=== PATIENT | female | born 2000 | race American Indian/Alaskan Native ===

== ENCOUNTER 2019-03-17 18:15 | Outpatient (CLI) | payer OTHER ==
--- NOTE | 2019-03-17 21:19 | Ultrasound Report ---
Limited OB Ultrasound HISTORY: for LAZARO. TECHNIQUE: Grayscale and color Doppler imaging performed. COMPARISON: None FINDINGS: There is a single intrauterine gestation which is cephalic in presentation with heart rate of 164 bpm. The LAZARO is 17 cm. Placenta is positioned posteriorly. IMPRESSION: Unremarkable exam. Signer Name: Saeid Lira MD Signed: 03/17/2019 9:14 PM Workstation Name: [id number]
[2019-03-17 23:13] VITALS: BP 119/69
--- NOTE | 2019-03-18 01:20 | Progress Note ---
Assessment and Plan A: at 20 weeks, 4 days gestation. No evidence of rupture of membranes; normal LAZARO. No contractions; not in labor at this time. P: Consulted with Dr. Monreal re: this patient due to gestation. Informed Dr. Monreal of patient complaints and history, exam, fern test results, LAZARO. Dr. Monreal orders to discharge patient home. Patient to follow up at regularly scheduled appointment with [facility] on 03/22/19. Warning signs discussed with patient. Advised patient to avoid intercourse. Subjective - Subjective Date of service: 03/18/19 Interval history: 18 year old at 20 4/7 weeks gestation presents complaining of leaking of some sort of fluid from vagina 2 times today. Pt. states both times she noticed this right afer she urinated. Patient denies vaginal bleeding. Patient reports active movement. Patient states she did not have to wear a pad or change clothes. She states that discharge/fluid did not continue to leak out. Patient reports no complications with this ; sees [facility] due to history of loss with her last . Management orders for this patient given by Dr. Monreal due to gestation. Patient reports: movement normal, no vaginal bleeding, no contractions Objective - Vital Signs Vital Signs: Vital Signs - 12hr 03/17/19 03/17/19 19:04 23:12 Temperature 98.2 F Pulse Rate 84 Respiratory 18 Rate Blood Pressure 119/69 - Exam Narrative Exam: LAZARO 17 cm. EFM: FHR AGA. No contractions noted on monitor or palpated. Fern negative times 2. Abdomen: Present: normal appearance, soft. Absent: distention, tenderness, guarding, rigidity Uterus: Present: normal, fundal height above umbilicus. Absent: tenderness FHR: category 1 FHR comments: Speculum exam performed times 2. Negative pooling, negative nitrazine, negative fern. Small to moderate amount of white discharge. No bleeding. Cervix is closed and thick. Uterus is nontender; no fundal tenderness. Uterine Contraction Monitor Mode: External Cervical Dilatation: 0 Cervical Effacement Percentage: 0 Uterine Contraction Pattern: Absent
== END 2019-03-18 02:15 | disposition home or self-care (01) ==
LOC: TRG 18:15 → LD 21:43 → TRG 03-18 02:15
PROVIDERS: ATTEND Obstetrics & Gynecology
DX: O47.02 False labor before 37 completed weeks of gestation, second trimester (principal); Z3A.20 20 weeks gestation of pregnancy
CPT/HCPCS: 76815

== ENCOUNTER 2019-03-21 11:55 | Outpatient (CLI) | payer OTHER ==
[2019-03-21] MEDS ORDERED: diphenhydrAMINE 50 MG/ML VIAL IV ONE ×2 (13:19→16:00)
[2019-03-21 13:56] LABS: Hematocrit 28.9 % (30.3-42.9); Hemoglobin 9.5 gm/dl (10.1-14.3); Mean Corpuscular HGB Conc 33 % (30-34); Mean Corpuscular Volume 84 fl (79-97); Platelet Count 242 K/mm3 (140-440); Red Blood Count 3.43 M/mm3 (3.65-5.03); Red Cell Distribution Width 17.6 % (13.2-15.2)
[2019-03-21 14:02] LABS: Bilirubin,Urine NEG (Negative); Blood,Urine NEG (Negative); Color,Urine Yellow (Yellow); Mucus,Urine FEW /HPF; Protein,Urine <15 mg/dL mg/dL (Negative)
[2019-03-21 14:17] LABS: Alanine Aminotransferase 21 units/L (7-56); Uric Acid 2.9 mg/dL (3.5-7.6)
[2019-03-21 15:01] VITALS: BP 119/76
== END 2019-03-21 15:28 | disposition home or self-care (01) ==
LOC: TRG 11:55
PROVIDERS: ATTEND Obstetrics & Gynecology
DX: O26.892 Other specified pregnancy related conditions, second trimester (principal); M79.89 Other specified soft tissue disorders; O47.02 False labor before 37 completed weeks of gestation, second trimester; Z3A.21 21 weeks gestation of pregnancy
CPT/HCPCS: 36415; 59025; 81001; 82565; 83615; 84450; 84460; 84550; 85027; 96365; J1200; 96374

== ENCOUNTER 2020-05-27 20:52 | Inpatient (IN) | payer OTHER ==
[2020-05-27] MEDS ORDERED: LIDOCAINE (2%) 20 MG/1 ML VIAL 20 ML MDV INFILTRATI ONE (23:07)
[2020-05-27] MEDS ORDERED: PROMETHAZINE 25 MG TAB PO PRN (23:07)
[2020-05-27] MEDS ORDERED: NalbUPHINE 10 MG/1 ML INJ IV PRN (23:07)
[2020-05-27] MEDS ORDERED: fentaNYL 100 MCG/2 ML INJ IV PRN (23:07)
[2020-05-27] MEDS ORDERED: AMPICILLIN/NS 2 GM/100 ML 2 GM/100 ML BAG IV ONE (23:07)
[2020-05-27] MEDS ORDERED: ePHEDrine SULFATE 50 MG/1 ML INJ IV PRN (23:07)
[2020-05-27] MEDS ORDERED: DINOPROSTONE 10 MG VAG SUPP VG ONE (23:07)
[2020-05-27] MEDS ORDERED: MINERAL OIL 30 ML ORAL LIQD PO PRN (23:07)
[2020-05-27 23:25] LABS: Hematocrit 33.1 % (30.3-42.9); Hemoglobin 11.2 gm/dl (10.1-14.3); Mean Corpuscular HGB Conc 34 % (30-34); Mean Corpuscular Volume 83 fl (79-97); Red Blood Count 3.97 M/mm3 (3.65-5.03); Red Cell Distribution Width 15.3 % (13.2-15.2)
--- NOTE | 2020-05-27 23:27 | History and Physical Report ---
History of Present Illness Date of examination: 05/27/20 Date of admission: 05/27/20 20:52 Chief complaint: demise told to patient 3 days ago in the [facility] office and pt here for induction of labor History of present illness: at 16.2wks by EDC 11/09/20 per pt report, with demise diagnosed 3days ago by [facility]. Pt has not had any pelvic pain, vaginal bleeding or leakage of fluid. Pt states that she was told that she had an incompetent cervix with leakage of fluid prior to delivery of 17wk demise in 08/2018 and then she declined cerclage with her next in 06/2019 with PPROM and breech hence c/section done and now this no evaluation of cervical incompetence was done and she saw a lot of fluid around the baby but no FHR on 05/24/20. Pt had epidural with her first 17wk delivery and will decide if she will need it for this delivery also. Past History Past Surgical History: section (PPROM breech at 35wks and child doing well) Social history: no significant social history - Obstetrical History : 3 Number of Pregnancies: 1 (c/s for PPROM, breech) Induced : 1 (SROM at 17wks, cervical insufficiency) Number of Living Children: 1 Medications and Allergies Allergies Allergy/AdvReac Type Severity Reaction Status Date / Time No Known Allergies Allergy Unverified 03/17/19 19:32 Home Medications Medication Instructions Recorded Confirmed Last Taken Type Ibuprofen [Motrin 800 MG tab] 800 mg PO Q6H PRN #30 tablet 07/05/19 Unknown Rx oxyCODONE /ACETAMINOPHEN [Percocet 1 tab PO Q6H PRN #30 tablet 07/05/19 Unknown Rx 5/325 mg] Active Meds: Active Medications Ephedrine Sulfate (Ephedrine Sulfate 50 Mg/1 Ml Inj) 10 mg IV Q2M PRN PRN Reason: Hypotension Fentanyl (Fentanyl 100 Mcg/2 Ml Inj) 100 mcg IV Q2H PRN PRN Reason: Pain,Severe (7-10) LABOR PAIN Lactated Ringer's (Lactated Ringers) 1,000 mls @ 125 mls/hr IV DIRECT ANKITA Oxytocin/Sodium Chloride (Pitocin/Ns 30 Unit/500ml) 30 units in 500 mls @ 40 mls/hr IV TITR ANKITA; Protocol Ampicillin Sodium (Ampicillin/Ns 2 Gm/100 Ml) 2 gm in 100 mls @ 100 mls/hr IV Q6HR ONE; Protocol Stop: 05/28/20 00:06 Mineral Oil (Mineral Oil 30 Ml Oral Liqd) 30 ml PO QHS PRN PRN Reason: Constipation Nalbuphine HCl (Nalbuphine 10 Mg/1 Ml Inj) 10 mg IV Q2H PRN PRN Reason: Pain, Moderate (4-6) Promethazine HCl (Promethazine 25 Mg Tab) 25 mg PO Q6H PRN PRN Reason: Nausea And Vomiting Review of Systems All systems: negative ( demise at 16.2wks confirmed by [facility]) - Vital Signs Vital signs: Vital Signs Pulse BP 90 119/85 05/27/20 21:33 05/27/20 21:33 Temp Pulse Resp BP Pulse Ox 99.5 F 88 16 122/68 99 05/27/20 21:46 05/27/20 23:15 05/27/20 21:46 05/27/20 22:34 05/27/20 23:15 - Physical Exam Breasts: Positive: deferred Cardiovascular: Regular rate Lungs: Positive: Normal air movement Abdomen: Positive: soft Vulva: both: normal Vagina: Positive: normal moisture Uterus: Positive: enlarged (18wk fundus) Anus/Rectum: Positive: normal perianal skin Extremities: Positive: normal - Obstetrical FHR: other (no FHR confirmed by u/s at [facility] with fluid around baby) Uterine Contraction Monitor Mode: External Cervical Dilatation: 0 Cervical Effacement Percentage: 0 station: -4 Uterine Contraction Pattern: Absent Results All other labs normal. Assessment and Plan IUP at 16.2wks with demise, previous c/section and fundus at 18wks for delivery 1. Admit to labor and delivery for delivery of baby and obtain confirmed demise here at the hospital and same done 2. Obtain records in the am from [facility] when available 3. Discussed risks, benefits and alternatives of induction of labor with cervidil with previous scarred uterus and undocumented scar 4. May have IV pain med or epidural when desired 5. Pt desires depo contraception prior to discharge 6. Will add urine drug screen to walk in labs 7. [facility] desires genetic post delivery and tissue sample to be test All questions encouraged and answered
[2020-05-27 23:34] LABS: Platelet Count 164 K/mm3 (140-440)
[2020-05-27] MEDS ORDERED: OXYTOCIN DRIP 30 UNITS/500 ML BAG IV SCH (23:45)
[2020-05-28] MEDS: LACTATED RINGERS 1,000 ML IV SCH ×3 (00:41→18:52)
--- NOTE | 2020-05-28 01:12 | Ultrasound Report ---
ULTRASOUND OBSTETRIC LIMITED INDICATION / CLINICAL INFORMATION: cardiac activity. Clinical Gestational Age (GA): 16.2 weeks.days COMPARISON: None available. FINDINGS: HEART RATE (beats per minute): No cardiac activity detected on M-mode AMNIOTIC FLUID INDEX (cm) = not measured PRESENTATION: Cephalic. ADDITIONAL FINDINGS: None. IMPRESSION: 1. demise with no cardiac activity detected Signer Name: Jasper William MD Signed: 05/28/2020 1:07 AM Workstation Name: [id number]
[2020-05-28] MEDS ORDERED: AMPICILLIN/NS 2 GM/100 ML 2 GM/100 ML BAG IV SCH (08:00)
--- NOTE | 2020-05-28 10:14 | Progress Note ---
Subjective - Subjective Date of service: 05/28/20 Principal diagnosis: IUFD Interval history: IUFD SP cervidilx1 dose to be removed at noon will check cervix and change to ACOG protocol 200mcg Q4x5 doses discontinue prophylactic antibiotics Maternal well being reassuring at bedside Ana Rosa Bean MD Objective - Vital Signs Vital Signs: Vital Signs - 12hr 05/27/20 05/27/20 05/27/20 22:13 22:15 22:20 Temperature Pulse Rate 96 H 82 83 Respiratory Rate Blood Pressure O2 Sat by Pulse 91 99 99 Oximetry 05/27/20 05/27/20 05/27/20 22:25 22:30 22:34 Temperature Pulse Rate 96 H 88 86 Respiratory Rate Blood Pressure 122/68 O2 Sat by Pulse 99 98 Oximetry 05/27/20 05/27/20 05/27/20 22:35 22:40 22:45 Temperature Pulse Rate 83 87 88 Respiratory Rate Blood Pressure O2 Sat by Pulse 98 98 99 Oximetry 05/27/20 05/27/20 05/27/20 22:50 22:55 23:00 Temperature Pulse Rate 90 104 H 91 H Respiratory Rate Blood Pressure O2 Sat by Pulse 98 99 100 Oximetry 05/27/20 05/27/20 05/27/20 23:05 23:10 23:15 Temperature Pulse Rate 83 89 88 Respiratory Rate Blood Pressure O2 Sat by Pulse 99 99 99 Oximetry 05/27/20 05/27/20 05/27/20 23:20 23:25 23:30 Temperature Pulse Rate 92 H 89 97 H Respiratory Rate Blood Pressure O2 Sat by Pulse 99 100 100 Oximetry 05/27/20 05/27/20 05/27/20 23:34 23:35 23:40 Temperature Pulse Rate 96 H 101 H 104 H Respiratory Rate Blood Pressure 115/62 O2 Sat by Pulse 99 98 Oximetry 05/27/20 05/27/20 05/27/20 23:45 23:50 23:55 Temperature Pulse Rate 86 107 H 91 H Respiratory Rate Blood Pressure O2 Sat by Pulse 99 99 98 Oximetry 05/28/20 05/28/20 05/28/20 00:00 00:25 00:30 Temperature Pulse Rate 115 H 79 89 Respiratory Rate Blood Pressure O2 Sat by Pulse 98 99 99 Oximetry 05/28/20 05/28/20 05/28/20 00:34 00:38 00:43 Temperature Pulse Rate 95 H 91 H 83 Respiratory Rate Blood Pressure 123/68 O2 Sat by Pulse 99 97 Oximetry 05/28/20 05/28/20 05/28/20 00:48 00:53 00:58 Temperature Pulse Rate 92 H 98 H 97 H Respiratory Rate Blood Pressure O2 Sat by Pulse 98 99 99 Oximetry 05/28/20 05/28/20 05/28/20 01:03 01:08 01:13 Temperature Pulse Rate 99 H 102 H 95 H Respiratory Rate Blood Pressure O2 Sat by Pulse 98 97 98 Oximetry 05/28/20 05/28/20 05/28/20 01:18 01:23 01:28 Temperature Pulse Rate 98 H 87 85 Respiratory Rate Blood Pressure O2 Sat by Pulse 99 98 98 Oximetry 05/28/20 05/28/20 05/28/20 01:33 01:35 01:38 Temperature Pulse Rate 89 94 H 75 Respiratory Rate Blood Pressure 120/56 O2 Sat by Pulse 99 98 Oximetry 05/28/20 05/28/20 05/28/20 01:43 01:48 01:53 Temperature Pulse Rate 77 78 77 Respiratory Rate Blood Pressure O2 Sat by Pulse 98 98 98 Oximetry 05/28/20 05/28/20 05/28/20 01:58 02:03 02:08 Temperature Pulse Rate 82 80 82 Respiratory Rate Blood Pressure O2 Sat by Pulse 98 97 97 Oximetry 05/28/20 05/28/20 05/28/20 02:13 02:18 02:23 Temperature Pulse Rate 83 79 90 Respiratory Rate Blood Pressure O2 Sat by Pulse 97 98 97 Oximetry 05/28/20 05/28/20 05/28/20 02:28 02:33 02:34 Temperature Pulse Rate 81 95 H 85 Respiratory Rate Blood Pressure 114/61 O2 Sat by Pulse 98 99 Oximetry 05/28/20 05/28/20 05/28/20 02:38 02:43 02:48 Temperature Pulse Rate 88 92 H 91 H Respiratory Rate Blood Pressure O2 Sat by Pulse 97 98 99 Oximetry 05/28/20 05/28/20 05/28/20 02:53 02:58 03:03 Temperature Pulse Rate 88 87 84 Respiratory Rate Blood Pressure O2 Sat by Pulse 99 100 99 Oximetry 05/28/20 05/28/20 05/28/20 03:08 03:13 03:18 Temperature Pulse Rate 83 82 82 Respiratory Rate Blood Pressure O2 Sat by Pulse 98 98 97 Oximetry 05/28/20 05/28/20 05/28/20 03:23 03:28 03:33 Temperature Pulse Rate 79 75 74 Respiratory Rate Blood Pressure O2 Sat by Pulse 97 98 98 Oximetry 05/28/20 05/28/20 05/28/20 03:34 03:38 03:43 Temperature Pulse Rate 72 73 73 Respiratory Rate Blood Pressure 103/54 O2 Sat by Pulse 97 98 Oximetry 05/28/20 05/28/20 05/28/20 03:48 03:53 03:58 Temperature Pulse Rate 71 71 73 Respiratory Rate Blood Pressure O2 Sat by Pulse 98 98 98 Oximetry 05/28/20 05/28/20 05/28/20 04:03 04:08 04:13 Temperature Pulse Rate 91 H 71 69 Respiratory Rate Blood Pressure O2 Sat by Pulse 99 99 98 Oximetry 05/28/20 05/28/20 05/28/20 04:18 04:23 04:28 Temperature Pulse Rate 68 72 71 Respiratory Rate Blood Pressure O2 Sat by Pulse 99 99 98 Oximetry 05/28/20 05/28/20 05/28/20 04:33 04:34 04:38 Temperature Pulse Rate 82 78 71 Respiratory Rate Blood Pressure 116/66 O2 Sat by Pulse 98 98 Oximetry 05/28/20 05/28/20 05/28/20 04:43 04:48 04:53 Temperature Pulse Rate 79 78 69 Respiratory Rate Blood Pressure O2 Sat by Pulse 99 98 98 Oximetry 05/28/20 05/28/20 05/28/20 04:58 05:03 05:08 Temperature Pulse Rate 72 69 75 Respiratory Rate Blood Pressure O2 Sat by Pulse 99 99 98 Oximetry 05/28/20 05/28/20 05/28/20 05:13 05:18 05:23 Temperature Pulse Rate 72 77 73 Respiratory Rate Blood Pressure O2 Sat by Pulse 98 97 98 Oximetry 05/28/20 05/28/20 05/28/20 05:28 05:33 05:34 Temperature Pulse Rate 71 78 82 Respiratory Rate Blood Pressure 117/68 O2 Sat by Pulse 98 97 Oximetry 05/28/20 05/28/20 05/28/20 05:38 05:43 05:48 Temperature Pulse Rate 78 69 72 Respiratory Rate Blood Pressure O2 Sat by Pulse 98 98 99 Oximetry 05/28/20 05/28/2021 05:53 05:58 06:03 Temperature Pulse Rate 67 70 69 Respiratory Rate Blood Pressure O2 Sat by Pulse 99 99 99 Oximetry 05/28/20 05/28/20 05/28/20 06:08 06:13 06:18 Temperature Pulse Rate 70 70 72 Respiratory Rate Blood Pressure O2 Sat by Pulse 98 99 99 Oximetry 05/28/20 05/28/20 05/28/20 06:23 06:28 06:33 Temperature Pulse Rate 70 76 83 Respiratory Rate Blood Pressure O2 Sat by Pulse 100 99 99 Oximetry 05/28/20 05/28/20 05/28/20 06:34 06:38 06:43 Temperature Pulse Rate 99 H 79 73 Respiratory Rate Blood Pressure 113/60 O2 Sat by Pulse 99 99 Oximetry 05/28/20 05/28/20 05/28/20 06:48 06:53 06:58 Temperature Pulse Rate 82 74 68 Respiratory Rate Blood Pressure O2 Sat by Pulse 99 98 98 Oximetry 05/28/20 05/28/20 05/28/20 07:03 07:08 07:13 Temperature Pulse Rate 66 102 H 88 Respiratory Rate Blood Pressure O2 Sat by Pulse 99 100 99 Oximetry 05/28/20 05/28/20 05/28/20 07:18 07:23 07:28 Temperature Pulse Rate 66 71 71 Respiratory Rate Blood Pressure O2 Sat by Pulse 98 98 98 Oximetry 05/28/20 05/28/20 05/28/20 07:33 07:34 07:38 Temperature Pulse Rate 71 68 77 Respiratory Rate Blood Pressure 108/58 O2 Sat by Pulse 98 99 Oximetry 05/28/20 05/28/20 05/28/20 07:43 07:48 07:52 Temperature Pulse Rate 71 84 81 Respiratory Rate Blood Pressure 117/60 O2 Sat by Pulse 99 99 Oximetry 05/28/20 05/28/20 05/28/20 07:53 07:58 08:03 Temperature 98.5 F Pulse Rate 81 77 101 H Respiratory 20 Rate Blood Pressure O2 Sat by Pulse 98 98 99 Oximetry 05/28/20 05/28/20 05/28/20 08:08 08:18 08:23 Temperature Pulse Rate 88 106 H 85 Respiratory Rate Blood Pressure O2 Sat by Pulse 99 99 99 Oximetry 05/28/20 05/28/20 05/28/20 08:28 08:33 08:34 Temperature Pulse Rate 74 75 78 Respiratory Rate Blood Pressure 104/57 O2 Sat by Pulse 98 99 Oximetry 05/28/20 05/28/20 05/28/20 08:38 08:43 08:48 Temperature Pulse Rate 80 78 78 Respiratory Rate Blood Pressure O2 Sat by Pulse 98 99 99 Oximetry 05/28/20 05/28/20 05/28/20 08:53 08:58 09:03 Temperature Pulse Rate 82 76 71 Respiratory Rate Blood Pressure O2 Sat by Pulse 99 98 98 Oximetry 05/28/20 05/28/20 05/28/20 09:08 09:13 09:18 Temperature Pulse Rate 70 62 81 Respiratory Rate Blood Pressure O2 Sat by Pulse 98 100 100 Oximetry 05/28/20 05/28/20 05/28/20 09:23 09:28 09:33 Temperature Pulse Rate 67 60 91 H Respiratory Rate Blood Pressure O2 Sat by Pulse 99 99 99 Oximetry 05/28/20 05/28/20 05/28/20 09:34 09:38 09:43 Temperature Pulse Rate 90 75 76 Respiratory Rate Blood Pressure 113/61 O2 Sat by Pulse 98 98 Oximetry 05/28/20 05/28/20 05/28/20 09:48 09:53 09:58 Temperature Pulse Rate 77 82 89 Respiratory Rate Blood Pressure O2 Sat by Pulse 99 98 98 Oximetry 05/28/20 05/28/20 10:03 10:08 Temperature Pulse Rate 63 63 Respiratory Rate Blood Pressure O2 Sat by Pulse 99 99 Oximetry - Labs Labs: Abnormal Labs 05/27/20 21:30 RDW 15.3 H Laboratory Results - last 24 hr 05/27/20 05/27/20 21:30 21:30 WBC 10.2 RBC 3.97 Hgb 11.2 Hct 33.1 MCV 83 MCH 28 MCHC 34 RDW 15.3 H Plt Count 164 Blood Type B POSITIVE Antibody Screen Negative
[2020-05-28] MEDS: miSOPROStol 200 MCG TAB VG SCH ×2 (15:00→18:52)
[2020-05-28 19:52] LABS: Amphetamine Screen,Urine Negative; Benzodiazepines Screen,Urine Negative; Cannabinoid Screen,Urine Negative; Cocaine Screen,Urine Negative; Methadone Screen,Urine Negative; Opiate Screen,Urine Negative
--- NOTE | 2020-05-28 21:37 | Progress Note ---
Subjective - Subjective Date of service: 05/28/20 Principal diagnosis: IUFD Interval history: SROM clear cervix 1cm/long/high cytotec 200mcg pv placed at bedside maternal status reassuring continue current management Ana Rosa Bean MD Objective - Vital Signs Vital Signs: Vital Signs - 12hr 05/28/20 05/28/20 05/28/20 09:38 09:43 09:48 Temperature Pulse Rate 75 76 77 Respiratory Rate Blood Pressure O2 Sat by Pulse 98 98 99 Oximetry 05/28/20 05/28/20 05/28/20 09:53 09:58 10:03 Temperature Pulse Rate 82 89 63 Respiratory Rate Blood Pressure O2 Sat by Pulse 98 98 99 Oximetry 05/28/20 05/28/20 05/28/20 10:08 10:13 10:18 Temperature Pulse Rate 63 94 H 61 Respiratory Rate Blood Pressure O2 Sat by Pulse 99 99 99 Oximetry 05/28/20 05/28/20 05/28/20 10:23 10:28 10:33 Temperature Pulse Rate 63 64 68 Respiratory Rate Blood Pressure O2 Sat by Pulse 99 99 99 Oximetry 05/28/20 05/28/20 05/28/20 10:34 10:38 10:43 Temperature Pulse Rate 100 H 69 63 Respiratory Rate Blood Pressure 94/58 O2 Sat by Pulse 98 99 Oximetry 05/28/20 05/28/20 05/28/20 10:48 10:53 10:58 Temperature Pulse Rate 62 80 70 Respiratory Rate Blood Pressure O2 Sat by Pulse 99 99 99 Oximetry 05/28/20 05/28/20 05/28/20 11:03 11:08 11:13 Temperature Pulse Rate 72 63 71 Respiratory Rate Blood Pressure O2 Sat by Pulse 98 99 99 Oximetry 05/28/20 05/28/20 05/28/20 11:18 11:23 11:28 Temperature Pulse Rate 95 H 67 77 Respiratory Rate Blood Pressure O2 Sat by Pulse 98 98 98 Oximetry 05/28/20 05/28/20 05/28/20 11:33 11:38 11:43 Temperature Pulse Rate 80 80 85 Respiratory Rate Blood Pressure O2 Sat by Pulse 98 98 99 Oximetry 05/28/20 05/28/20 05/28/20 11:48 11:53 11:58 Temperature Pulse Rate 72 74 74 Respiratory Rate Blood Pressure O2 Sat by Pulse 99 99 99 Oximetry 0205/28/20 05/28/20 12:03 12:08 12:13 Temperature Pulse Rate 79 64 63 Respiratory Rate Blood Pressure O2 Sat by Pulse 98 100 99 Oximetry 05/28/20 05/28/20 05/28/20 12:18 12:23 12:28 Temperature Pulse Rate 64 68 62 Respiratory Rate Blood Pressure O2 Sat by Pulse 99 98 100 Oximetry 05/28/20 05/28/20 05/28/20 12:33 12:38 12:43 Temperature Pulse Rate 66 75 86 Respiratory Rate Blood Pressure O2 Sat by Pulse 99 99 100 Oximetry 05/28/20 05/28/20 05/28/20 12:48 12:53 12:58 Temperature Pulse Rate 69 75 71 Respiratory Rate Blood Pressure O2 Sat by Pulse 98 99 99 Oximetry 05/28/20 05/28/20 05/28/20 13:03 13:08 13:13 Temperature Pulse Rate 76 85 84 Respiratory Rate Blood Pressure O2 Sat by Pulse 99 99 99 Oximetry 05/28/20 05/28/20 05/28/20 13:18 13:23 13:28 Temperature Pulse Rate 70 75 76 Respiratory Rate Blood Pressure O2 Sat by Pulse 99 99 99 Oximetry 05/28/20 05/28/20 05/28/20 13:33 13:34 13:38 Temperature Pulse Rate 72 76 97 H Respiratory Rate Blood Pressure 121/69 O2 Sat by Pulse 99 100 Oximetry 05/28/20 05/28/20 05/28/20 13:43 13:48 13:53 Temperature Pulse Rate 83 96 H 88 Respiratory Rate Blood Pressure O2 Sat by Pulse 100 100 98 Oximetry 05/28/20 05/28/20 05/28/20 13:58 14:03 14:08 Temperature Pulse Rate 86 106 H 75 Respiratory Rate Blood Pressure O2 Sat by Pulse 97 99 99 Oximetry 05/28/20 05/28/20 05/28/20 14:13 14:18 14:23 Temperature Pulse Rate 75 86 77 Respiratory Rate Blood Pressure O2 Sat by Pulse 98 100 99 Oximetry 05/28/20 05/28/20 05/28/20 14:28 14:33 14:34 Temperature Pulse Rate 82 83 95 H Respiratory Rate Blood Pressure 136/74 O2 Sat by Pulse 100 98 Oximetry 05/28/20 05/28/20 05/28/20 14:38 14:43 14:48 Temperature Pulse Rate 92 H 90 94 H Respiratory Rate Blood Pressure O2 Sat by Pulse 97 98 98 Oximetry 05/28/20 05/28/20 05/28/20 14:54 14:59 15:04 Temperature Pulse Rate 97 H 88 80 Respiratory Rate Blood Pressure O2 Sat by Pulse 100 98 98 Oximetry 05/28/20 05/28/20 05/28/20 15:09 15:14 15:19 Temperature Pulse Rate 87 90 89 Respiratory Rate Blood Pressure O2 Sat by Pulse 99 89 100 Oximetry 05/28/20 05/28/20 05/28/20 15:24 15:29 15:34 Temperature Pulse Rate 81 83 83 Respiratory Rate Blood Pressure 103/67 O2 Sat by Pulse 98 99 98 Oximetry 05/28/20 05/28/20 05/28/20 15:35 15:39 15:44 Temperature 98.5 F Pulse Rate 81 79 Respiratory 20 Rate Blood Pressure O2 Sat by Pulse 99 99 99 Oximetry 05/28/20 05/28/20 05/28/20 15:49 15:54 15:59 Temperature Pulse Rate 78 91 H 81 Respiratory Rate Blood Pressure O2 Sat by Pulse 100 99 100 Oximetry 05/28/20 05/28/20 05/28/20 16:04 16:09 16:14 Temperature Pulse Rate 78 84 78 Respiratory Rate Blood Pressure O2 Sat by Pulse 99 99 99 Oximetry 05/28/20 05/28/20 05/28/20 16:19 16:24 16:29 Temperature Pulse Rate 74 76 79 Respiratory Rate Blood Pressure O2 Sat by Pulse 100 99 98 Oximetry 05/28/20 05/28/20 05/28/20 16:35 16:40 16:45 Temperature Pulse Rate 105 H 77 78 Respiratory Rate Blood Pressure O2 Sat by Pulse 100 99 99 Oximetry 05/28/20 05/28/20 05/28/20 16:50 16:55 17:00 Temperature Pulse Rate 75 77 73 Respiratory Rate Blood Pressure O2 Sat by Pulse 100 100 100 Oximetry 05/28/20 05/28/20 05/28/20 17:05 17:10 17:15 Temperature Pulse Rate 77 78 78 Respiratory Rate Blood Pressure O2 Sat by Pulse 99 97 99 Oximetry 05/28/20 05/28/20 05/28/20 17:20 17:25 17:30 Temperature Pulse Rate 84 80 91 H Respiratory Rate Blood Pressure O2 Sat by Pulse 99 99 91 Oximetry 02/16/21 02/16/21 02/16/21 17:35 17:40 17:42 Temperature Pulse Rate 80 84 90 Respiratory Rate Blood Pressure O2 Sat by Pulse 100 99 92 Oximetry 05/28/20 05/28/20 05/28/20 17:45 17:50 17:54 Temperature Pulse Rate 66 66 73 Respiratory Rate Blood Pressure O2 Sat by Pulse 99 99 90 Oximetry 05/28/20 05/28/20 05/28/20 17:55 18:00 18:14 Temperature Pulse Rate 66 86 57 L Respiratory Rate Blood Pressure O2 Sat by Pulse 98 98 100 Oximetry 05/28/20 05/28/20 05/28/20 18:19 18:24 18:29 Temperature Pulse Rate 74 67 75 Respiratory Rate Blood Pressure O2 Sat by Pulse 99 100 100 Oximetry 05/28/20 05/28/20 05/28/20 18:34 18:35 18:39 Temperature Pulse Rate 61 75 102 H Respiratory Rate Blood Pressure 99/57 O2 Sat by Pulse 97 99 Oximetry 05/28/20 05/28/20 05/28/20 18:44 18:49 18:54 Temperature Pulse Rate 79 74 76 Respiratory Rate Blood Pressure O2 Sat by Pulse 99 99 99 Oximetry 05/28/20 05/28/20 05/28/20 18:59 19:04 19:09 Temperature Pulse Rate 97 H 70 69 Respiratory Rate Blood Pressure O2 Sat by Pulse 99 100 100 Oximetry 05/28/20 05/28/20 05/28/20 19:14 19:19 19:24 Temperature Pulse Rate 67 64 67 Respiratory Rate Blood Pressure O2 Sat by Pulse 99 100 99 Oximetry 05/28/20 05/28/20 05/28/20 19:29 19:34 19:39 Temperature Pulse Rate 82 72 82 Respiratory Rate Blood Pressure 112/75 O2 Sat by Pulse 98 100 99 Oximetry 05/28/20 05/28/20 05/28/20 20:26 20:31 20:34 Temperature Pulse Rate 78 75 Respiratory 18 Rate Blood Pressure O2 Sat by Pulse 98 97 Oximetry 05/28/20 05/28/20 05/28/20 20:36 20:41 20:46 Temperature Pulse Rate 78 65 84 Respiratory Rate Blood Pressure O2 Sat by Pulse 98 99 97 Oximetry 05/28/20 05/28/20 05/28/20 20:51 20:56 20:58 Temperature Pulse Rate 88 62 74 Respiratory Rate Blood Pressure O2 Sat by Pulse 100 100 91 Oximetry 05/28/20 05/28/20 05/28/20 21:01 21:06 21:11 Temperature Pulse Rate 61 58 L 57 L Respiratory Rate Blood Pressure O2 Sat by Pulse 98 98 98 Oximetry 05/28/20 05/28/20 05/28/20 21:16 21:21 21:26 Temperature Pulse Rate 57 L 59 L 58 L Respiratory Rate Blood Pressure O2 Sat by Pulse 99 97 96 Oximetry 05/28/20 21:31 Temperature Pulse Rate 55 L Respiratory Rate Blood Pressure O2 Sat by Pulse 96 Oximetry - Labs Labs: Abnormal Labs 05/27/20 21:30 RDW 15.3 H Laboratory Results - last 24 hr 05/27/20 05/27/20 05/28/20 21:30 21:30 19:31 WBC 10.2 RBC 3.97 Hgb 11.2 Hct 33.1 MCV 83 MCH 28 MCHC 34 RDW 15.3 H Plt Count 164 Urine Opiates Screen Negative Urine Methadone Screen Negative Ur Barbiturates Screen Negative Ur Phencyclidine Scrn Negative Ur Amphetamines Screen Negative U Benzodiazepines Scrn Negative Urine Cocaine Screen Negative U Marijuana (THC) Screen Negative Drugs of Abuse Note Disclamer Coronavirus (PCR) Blood Type B POSITIVE Antibody Screen Negative 05/28/20 Unknown WBC RBC Hgb Hct MCV MCH MCHC RDW Plt Count Urine Opiates Screen Urine Methadone Screen Ur Barbiturates Screen Ur Phencyclidine Scrn Ur Amphetamines Screen U Benzodiazepines Scrn Urine Cocaine Screen U Marijuana (THC) Screen Drugs of Abuse Note Coronavirus (PCR) Negative Blood Type Antibody Screen
[2020-05-28] MEDS ORDERED: miSOPROStol 200 MCG TAB PO ONE (23:30)
--- NOTE | 2020-05-29 04:04 | Ultrasound Report ---
ULTRASOUND PELVIS INDICATION: retained products of conception. TECHNIQUE: Transabdominal. Duplex Color Doppler used: Yes. COMPARISON: None available FINDINGS: Uterus: Present. Enlarged uterus Endometrial complex: Thickened and heterogeneous measuring 3.3 cm with increased color Doppler flow Mass lesions: None. Additional findings: None. Right Ovary --not visualized secondary to bowel gas Left Ovary--not visualized secondary to bowel gas Urinary Bladder: Normal. Free Fluid: None. Additional Findings: None. IMPRESSION: 1. Thickened heterogeneous endometrium with increased color Doppler flow Thickened endometrial complex in a uterus. It is difficult to distinguish a sarath gricelda containing clots from retained products of conception. Clinical correlation is recommended. Signer Name: Jasper William MD Signed: 05/29/2020 3:59 AM Workstation Name: [id number]
[2020-05-29] MEDS: METHYLERGONOVINE 0.2 MG TABLET PO SCH ×2 (04:33→11:06)
[2020-05-29] MEDS: IBUPROFEN 600 MG TAB PO SCH ×2 (04:33→12:42)
--- NOTE | 2020-05-29 06:50 | Procedure Note ---
OB Delivery Note - Delivery Date of Delivery: 05/29/20 - Vaginal Delivery comments: I was called for delivery of fetus and POC uncertain if placenta delivered no active bleeding plan for US to rule out retained POC patient hemodynamically stable Ana Rosa Bean MD
[2020-05-29 13:05] VITALS: BP 121/69
--- NOTE | 2020-05-29 15:04 | Progress Note ---
Assessment and Plan - Patient Problems (1) IUFD (intrauterine ) Current Visit: Yes Status: Acute Plan to address problem: PT stable s/p IUFD delivery with scant vaginal bleeding now and no pelvic pain. As result, will discharge patient home. Vaginal bleeding precautions, pelvic pain precautions, and fever precautions discussed with the patient. Patient to return to the office or the hospital if any of those issues develop. Otherwise patient can follow-up in the office in 6 weeks. Subjective - Subjective Date of service: 05/29/20 Principal diagnosis: IUFD Interval history: Pt physically doing well. No pelvic pain. Scant VB. U/S showed thickened EM but no clear evidence of retained POCs. Objective - Vital Signs Latest vital signs: Vital Signs Temp Pulse Resp BP BP Pulse Ox 05/29/20 13:05 98.4 F 74 20 121/69 05/29/20 08:16 97.9 F 85 20 119/77 05/29/20 05:37 98.4 F 70 20 117/73 99 05/29/20 04:33 18 05/29/20 04:02 68 115/83 05/29/20 03:46 64 113/79 05/29/20 03:32 66 112/78 05/29/20 03:17 75 109/73 05/29/20 03:01 75 111/75 05/29/20 02:47 98.7 F 67 18 109/74 109/74 05/29/20 02:32 68 111/73 05/29/20 02:28 67 100 05/29/20 02:23 74 99 05/29/20 02:18 69 99 05/29/20 02:13 71 99 05/29/20 02:08 64 98 05/29/20 02:03 61 99 05/29/20 01:58 61 99 05/29/20 01:53 64 99 05/29/20 01:48 64 99 05/29/20 01:43 67 99 05/29/20 01:38 72 98 05/29/20 01:33 75 100 05/29/20 01:28 64 98 05/29/20 01:23 66 97 05/29/20 01:18 65 98 05/29/20 01:13 66 97 05/29/20 01:08 66 98 05/29/20 01:03 70 98 05/29/20 00:58 68 98 05/29/20 00:53 69 98 05/29/20 00:48 69 98 05/29/20 00:43 78 99 05/29/20 00:38 73 98 05/29/20 00:33 62 98 05/29/20 00:28 64 98 05/29/20 00:23 63 98 05/29/20 00:18 61 98 05/29/20 00:13 63 98 05/29/20 00:08 61 99 05/29/20 00:03 60 98 05/28/20 23:58 62 98 05/28/20 23:53 69 98 05/28/20 23:48 63 100 05/28/20 23:43 61 98 05/28/20 23:38 64 98 05/28/20 23:33 66 98 05/28/20 23:28 77 100 05/28/20 23:23 62 98 05/28/20 23:18 61 98 05/28/20 23:13 63 98 05/28/20 23:08 67 98 05/28/20 23:03 66 99 05/28/20 22:58 63 98 05/28/20 22:53 64 98 05/28/20 22:48 70 98 05/28/20 22:43 70 98 05/28/20 22:38 71 99 05/28/20 22:33 64 99 05/28/20 22:28 100 H 99 05/28/20 22:16 60 98 05/28/20 22:11 59 L 100 05/28/20 22:06 58 L 99 05/28/20 22:01 56 L 100 05/28/20 21:56 57 L 99 05/28/20 21:51 54 L 100 05/28/20 21:46 55 L 97 05/28/20 21:41 56 L 98 05/28/20 21:36 57 L 96 05/28/20 21:31 55 L 96 05/28/20 21:26 58 L 96 05/28/20 21:21 59 L 97 05/28/20 21:16 57 L 99 05/28/20 21:11 57 L 98 05/28/20 21:06 58 L 98 05/28/20 21:01 61 98 05/28/20 20:58 74 91 05/28/20 20:56 62 100 05/28/20 20:51 88 100 05/28/20 20:46 84 97 05/28/20 20:41 65 99 05/28/20 20:36 78 98 05/28/20 20:34 18 05/28/20 20:31 75 97 05/28/20 20:26 78 98 05/28/20 19:39 82 99 05/28/20 19:34 72 112/75 100 05/28/20 19:29 82 98 05/28/20 19:24 67 99 05/28/20 19:19 64 100 05/28/20 19:14 67 99 05/28/20 19:09 69 100 05/28/20 19:04 70 100 05/28/20 18:59 97 H 99 05/28/20 18:54 76 99 05/28/20 18:49 74 99 05/28/20 18:44 79 99 05/28/20 18:39 102 H 99 05/28/20 18:35 75 99/57 05/28/20 18:34 61 97 05/28/20 18:29 75 100 05/28/20 18:24 67 100 05/28/20 18:19 74 99 05/28/20 18:14 57 L 100 05/28/20 18:00 86 98 05/28/20 17:55 66 98 05/28/20 17:54 73 90 05/28/20 17:50 66 99 05/28/20 17:45 66 99 05/28/20 17:42 90 92 05/28/20 17:40 84 99 05/28/20 17:35 80 100 05/28/20 17:30 91 H 91 05/28/20 17:25 80 99 05/28/20 17:20 84 99 05/28/20 17:15 78 99 05/28/20 17:10 78 97 05/28/20 17:05 77 99 05/28/20 17:00 73 100 05/28/20 16:55 77 100 05/28/20 16:50 75 100 05/28/20 16:45 78 99 05/28/20 16:40 77 99 02 16:35 105 H 100 05/28/20 16:29 79 98 05/28/20 16:24 76 99 05/28/20 16:19 74 100 05/28/20 16:14 78 99 05/28/20 16:09 84 99 05/28/20 16:04 78 99 05/28/20 15:59 81 100 05/28/20 15:54 91 H 99 05/28/20 15:49 78 100 05/28/20 15:44 79 99 05/28/20 15:39 81 99 05/28/20 15:35 98.5 F 20 99 05/28/20 15:34 83 103/67 98 05/28/20 15:29 83 99 05/28/20 15:24 81 98 05/28/20 15:19 89 100 05/28/20 15:14 90 89 05/28/20 15:09 87 99 05/28/20 15:04 80 98 Intake and Output 05/28/20 05/29/20 05/29/20 23:59 07:59 15:59 Intake Total 1000 720 Output Total 800 Balance 1000 -80 Intake: IV 1000 Lactated Ringers 1,000 ml 1000 @ 125 mls/hr IV DIRECT ANKITA Rx#:[id number] Oral 620 Intake, Free Water 100 Output: Urine 800 Void 800 Other: Total, Intake Amount 300 Total, Output Amount 800 # Voids Void 1 2 # Bowel Movements 1 Estimated Blood Loss 100 - Exam Abdomen: Present: normal appearance, soft. Absent: tenderness
--- NOTE | 2020-05-29 15:09 | Short Stay Summary ---
Short Stay Documentation Date of service: 05/29/20 Narrative H&P: Patient is status post admission for intrauterine demise at 16 weeks and 2 days. Please see progress notes and delivery note for details. Patient was induced and subsequently delivered early on 05/29/2020. Patient was stable after delivery and sent home in stable condition on 05/29/2020. Patient to follow-up in the office in 6 weeks. - History H&P: dictated Social history: no significant social history - Allergies and Medications Current Medications: Allergies No Known Allergies Allergy (Verified 05/28/20 10:13) Home Medications Medication Instructions Recorded Confirmed Last Taken Type Benadryl 1 tab PO ONCE 05/28/20 05/28/20 1 Week Ago History ~05/21/20 One Daily Tablet 1 tab PO DAILY 05/28/20 05/28/20 05/23/20 History Vitamin D (Nf) 1 tab PO DAILY 05/28/20 05/28/20 05/23/20 History Active Medications Ephedrine Sulfate (Ephedrine Sulfate 50 Mg/1 Ml Inj) 10 mg IV Q2M PRN PRN Reason: Hypotension Fentanyl (Fentanyl 100 Mcg/2 Ml Inj) 100 mcg IV Q2H PRN PRN Reason: Pain,Severe (7-10) LABOR PAIN Lactated Ringer's (Lactated Ringers) 1,000 mls @ 125 mls/hr IV DIRECT ANKITA Last Admin: 05/28/20 18:52 Dose: 125 mls/hr Documented by: Oxytocin/Sodium Chloride (Pitocin/Ns 30 Unit/500ml) 30 units in 500 mls @ 40 mls/hr IV TITR ANKITA; Protocol Ibuprofen (Ibuprofen 600 Mg Tab) 600 mg PO Q6HR ANKITA Last Admin: 05/29/20 12:42 Dose: Not Given Documented by: Methylergonovine Maleate (Methylergonovine 0.2 Mg Tablet) 0.2 mg PO Q8H ANKITA Last Admin: 05/29/20 11:06 Dose: 0.2 mg Documented by: Mineral Oil (Mineral Oil 30 Ml Oral Liqd) 30 ml PO QHS PRN PRN Reason: Constipation Nalbuphine HCl (Nalbuphine 10 Mg/1 Ml Inj) 10 mg IV Q2H PRN PRN Reason: Pain, Moderate (4-6) Last Admin: 05/28/20 20:34 Dose: 10 mg Documented by: Promethazine HCl (Promethazine 25 Mg Tab) 25 mg PO Q6H PRN PRN Reason: Nausea And Vomiting - Physical exam Breasts: deferred - Disposition Condition at discharge: Stable Disposition: DC-01 TO HOME OR SELFCARE - Discharge Diagnoses (1) IUFD (intrauterine ) Status: Acute Short Stay Discharge Plan Follow up with: MARC MATIAS MD [Staff Physician] - 6 Weeks
== END 2020-05-29 16:10 | disposition home or self-care (01) | DRG 775 ==
LOC: LD 20:52 → OB 05-29 04:47
PROVIDERS: ADMIT Obstetrics & Gynecology; ATTEND Obstetrics & Gynecology
PROC: 10E0XZZ Delivery of Products of Conception, External Approach (ICD-10-PCS; principal; 2020-05-29)
DX: O36.4XX0 Maternal care for intrauterine death, not applicable or unspecified (principal); O60.12X0 Preterm labor second trimester with preterm delivery second trimester, not applicable or unspecified; Z3A.16 16 weeks gestation of pregnancy; Z37.1 Single stillbirth; Z20.822 Contact with and (suspected) exposure to COVID-19; Z79.899 Other long term (current) drug therapy
CPT/HCPCS: 36415; 59200; 76815; 76857; 80307; 85027; 86850; 86900; 86901; G0378; J0290; J2300; J7120; U0003

== ENCOUNTER 2020-06-06 12:04 | Day surgery (SDC) | payer OTHER ==
[2020-06-06] MEDS ORDERED: ONDANSETRON 4 MG ODT TAB PO ONE (12:44)
[2020-06-06] MEDS ORDERED: HYDROcodone/ACETAMINOPHEN 5-325 MG TAB PO ONE (12:44)
[2020-06-06 13:13] LABS: Hematocrit 29.7 % (30.3-42.9); Hemoglobin 9.8 gm/dl (10.1-14.3); Mean Corpuscular HGB Conc 33 % (30-34); Mean Corpuscular Volume 82 fl (79-97); Platelet Count 261 K/mm3 (140-440); Red Blood Count 3.61 M/mm3 (3.65-5.03); Red Cell Distribution Width 15.1 % (13.2-15.2)
[2020-06-06 13:28] LABS: Bilirubin,Urine NEG (Negative); Blood,Urine LG (Negative); Color,Urine Yellow (Yellow); Mucus,Urine 2+ /HPF
[2020-06-06 13:29] LABS: Alanine Aminotransferase 16 units/L (7-56); Albumin 3.7 g/dL (3.9-5); Blood Urea Nitrogen 11 mg/dL (7-17); Calcium 8.9 mg/dL (8.4-10.2); Hemolysis Index 0
[2020-06-06 13:32] LABS: BUN/Creatinine Ratio 16
[2020-06-06 13:40] LABS: RBC,Urine > 182.0 /HPF (0.0-6.0)
--- NOTE | 2020-06-06 13:46 | Emergency Department Report ---
ED Female HPI - General Chief complaint: Vaginal Bleeding Stated complaint: MISSCARRIGE LAST WEEK/CLOTS LAST NIGHT Time Seen by Provider: 06/06/20 12:38 Source: patient Mode of arrival: Ambulatory Limitations: No Limitations - History of Present Illness Initial comments: pt is a 19 yo female who presents to the ED with c/o passing two large blood destiney ts last night. she states she has lower abd pain and vaginal bleeding. she states she is changing her menstrual pads every 3 hours. she was diagnosed with intrauterine demise and was induced and delivered at 16 weeks gestation at this facility on 05/27/2020. she states her [employer] consultant group is [employer]. she states she was advised to follow up in 6 weeks. she states she called her TECHNICAL OPERATOR office and they advised her to be seen in the ED. she states she was advised if her "vaginal blood clot was larger than a quarter then to report to the ED." she does not have anything at home to take for pain. she denies any fever, n/v/d, dysuria, abnormal vaginal discharge. no allergies to meds. - Related Data Home Medications Medication Instructions Recorded Confirmed Last Taken Benadryl 1 tab PO ONCE 05/28/20 05/28/20 1 Week Ago ~05/21/20 One Daily Tablet 1 tab PO DAILY 05/28/20 05/28/20 05/23/20 Vitamin D (Nf) 1 tab PO DAILY 05/28/20 05/28/20 05/23/20 Previous Rx's Medication Instructions Recorded Last Taken Type Doxycycline Monohydrate 100 mg PO BID #28 capsule 06/06/20 Unknown Rx [Doxycycline Monohydrate CAP] oxyCODONE /ACETAMINOPHEN [Percocet 1 tab PO Q6H PRN #10 tablet 06/06/20 Unknown Rx 5/325 mg] Allergies Allergy/AdvReac Type Severity Reaction Status Date / Time No Known Allergies Allergy Verified 05/28/20 10:13 ED Review of Systems ROS: Stated complaint: MISSCARRIGE LAST WEEK/CLOTS LAST NIGHT Other details as noted in HPI Comment: All other systems reviewed and negative ED Past Medical Hx - Past Medical History Hx Hypertension: No Hx Heart Attack/AMI: No Hx Congestive Heart Failure: No Hx Diabetes: No Hx Deep Vein Thrombosis: No Hx Liver Disease: No Hx Renal Disease: No Hx Sickle Cell Disease: No Hx Seizures: No Hx Asthma: No Hx COPD: No Hx HIV: No - Surgical History Hx Pacemaker: No Hx Internal Defibrillator: No Additional Surgical History: - Social History Smoking Status: Never Smoker Substance Use Type: None - Medications Home Medications: Home Medications Medication Instructions Recorded Confirmed Last Taken Type Benadryl 1 tab PO ONCE 05/28/20 05/28/20 1 Week Ago History ~05/21/20 One Daily Tablet 1 tab PO DAILY 05/28/20 05/28/20 05/23/20 History Vitamin D (Nf) 1 tab PO DAILY 05/28/20 05/28/20 05/23/20 History Doxycycline Monohydrate 100 mg PO BID #28 capsule 06/06/20 Unknown Rx [Doxycycline Monohydrate CAP] oxyCODONE /ACETAMINOPHEN [Percocet 1 tab PO Q6H PRN #10 tablet 06/06/20 Unknown Rx 5/325 mg] ED Physical Exam - General Limitations: No Limitations General appearance: alert, in no apparent distress - Head Head exam: Present: atraumatic, normocephalic - Eye Eye exam: Present: normal appearance - ENT ENT exam: Present: mucous membranes moist - Respiratory Respiratory exam: Present: normal lung sounds bilaterally. Absent: respiratory distress, wheezes, rales, rhonchi, stridor, chest wall tenderness, accessory muscle use, decreased breath sounds, prolonged expiratory - Cardiovascular Cardiovascular Exam: Present: regular rate, normal rhythm, normal heart sounds. Absent: systolic murmur, diastolic murmur, rubs, gallop - GI/Abdominal GI/Abdominal exam: Present: soft, tenderness (generalized lower), normal bowel sounds. Absent: distended, guarding, rebound, rigid - Neurological Exam Neurological exam: Present: alert, oriented X3 - Psychiatric Psychiatric exam: Present: normal affect, normal mood - Skin Skin exam: Present: warm, dry, intact ED Course Vital Signs 06/06/20 12:25 Temperature 99.1 F Pulse Rate 108 H Respiratory 18 Rate Blood Pressure 119/75 O2 Sat by Pulse 100 Oximetry - Consultations Consultation #1: 06/06/20 15:[address] Chang, TECHNICAL OPERATOR regarding pt history and results, advised to give pt ampicillin and gentamicin and admit pt to mother baby 06/06/20 15:46 Dr. Chang, TECHNICAL OPERATOR called back and states that he is planning to take pt to OR for DNC, he will see pt in the ED and discuss with pt regarding her options, risks vs. benefits, and the treatment plan ED Medical Decision Making - Lab Data Result diagrams: 06/06/20 12:48 06/06/20 12:48 Labs 06/06/20 06/06/20 06/06/20 12:48 12:48 12:48 WBC 14.7 H RBC 3.61 L Hgb 9.8 L Hct 29.7 L MCV 82 MCH 27 L MCHC 33 RDW 15.1 Plt Count 261 Add Manual Diff Complete Total Counted 100 Seg Neuts % (Manual) 71.0 H Lymphocytes % (Manual) 22.0 Monocytes % (Manual) 3.0 Eosinophils % (Manual) 4.0 Nucleated RBC % Not Reportable Seg Neutrophils # Man 10.4 H Band Neutrophils # 0.0 Lymphocytes # (Manual) 3.2 Abs React Lymphs (Man) 0.0 Monocytes # (Manual) 0.4 Eosinophils # (Manual) 0.6 H Basophils # (Manual) 0.0 Metamyelocytes # 0.0 Myelocytes # 0.0 Promyelocytes # 0.0 Blast Cells # 0.0 WBC Morphology Not Reportable Hypersegmented Neuts Not Reportable Hyposegmented Neuts Not Reportable Hypogranular Neuts Not Reportable Smudge Cells Not Reportable Toxic Granulation Not Reportable Toxic Vacuolation Not Reportable Dohle Bodies Not Reportable Pelger-Huet Anomaly Not Reportable Ginny Rods Not Reportable Platelet Estimate Consistent w auto Clumped Platelets Not Reportable Plt Clumps, EDTA Not Reportable Large Platelets Not Reportable Giant Platelets Not Reportable Platelet Satelliting Not Reportable Plt Morphology Comment Not Reportable RBC Morphology Normal Dimorphic RBCs Not Reportable Polychromasia Not Reportable Hypochromasia Not Reportable Poikilocytosis Not Reportable Anisocytosis Not Reportable Microcytosis Not Reportable Macrocytosis Not Reportable Spherocytes Not Reportable Pappenheimer Bodies Not Reportable Sickle Cells Not Reportable Target Cells Not Reportable Tear Drop Cells Not Reportable Ovalocytes Not Reportable Helmet Cells Not Reportable Armando-[place] Bodies Not Reportable Dupuyer Rings Not Reportable [place] Cells Not Reportable Bite Cells Not Reportable Crenated Cell Not Reportable Elliptocytes Not Reportable Acanthocytes (Spur) Not Reportable Rouleaux Not Reportable Hemoglobin C Crystals Not Reportable Schistocytes Not Reportable Malaria parasites Not Reportable Mitch Bodies Not Reportable Hem Pathologist Commnt No Sodium 139 Potassium 3.7 Chloride 102.9 Carbon Dioxide 27 Anion Gap 13 BUN 11 Creatinine 0.7 Estimated GFR > 60 BUN/Creatinine Ratio 16 Glucose 93 Calcium 8.9 Total Bilirubin 0.30 AST 17 ALT 16 Alkaline Phosphatase 79 Total Protein 7.4 Albumin 3.7 L Albumin/Globulin Ratio 1.0 HCG, Quant 154.9 H Urine Color Urine Turbidity Urine pH Ur Specific Hamill Urine Protein Urine Glucose (UA) Urine Ketones Urine Blood Urine Nitrite Urine Bilirubin Urine Urobilinogen Ur Leukocyte Esterase Urine WBC (Auto) Urine RBC (Auto) U Epithel Cells (Auto) Urine Mucus 06/06/20 Unknown WBC RBC Hgb Hct MCV MCH MCHC RDW Plt Count Add Manual Diff Total Counted Seg Neuts % (Manual) Lymphocytes % (Manual) Monocytes % (Manual) Eosinophils % (Manual) Nucleated RBC % Seg Neutrophils # Man Band Neutrophils # Lymphocytes # (Manual) Abs React Lymphs (Man) Monocytes # (Manual) Eosinophils # (Manual) Basophils # (Manual) Metamyelocytes # Myelocytes # Promyelocytes # Blast Cells # WBC Morphology Hypersegmented Neuts Hyposegmented Neuts Hypogranular Neuts Smudge Cells Toxic Granulation Toxic Vacuolation Dohle Bodies Pelger-Huet Anomaly Ginny Rods Platelet Estimate Clumped Platelets Plt Clumps, EDTA Large Platelets Giant Platelets Platelet Satelliting Plt Morphology Comment RBC Morphology Dimorphic RBCs Polychromasia Hypochromasia Poikilocytosis Anisocytosis Microcytosis Macrocytosis Spherocytes Pappenheimer Bodies Sickle Cells Target Cells Tear Drop Cells Ovalocytes Helmet Cells Armando-[place] Bodies Dupuyer Rings [place] Cells Bite Cells Crenated Cell Elliptocytes Acanthocytes (Spur) Rouleaux Hemoglobin C Crystals Schistocytes Malaria parasites Mitch Bodies Hem Pathologist Commnt Sodium Potassium Chloride Carbon Dioxide Anion Gap BUN Creatinine Estimated GFR BUN/Creatinine Ratio Glucose Calcium Total Bilirubin AST ALT Alkaline Phosphatase Total Protein Albumin Albumin/Globulin Ratio HCG, Quant Urine Color Yellow Urine Turbidity Slightly-cloudy Urine pH 6.0 Ur Specific Hamill 1.020 Urine Protein 100 mg/dl Urine Glucose (UA) Neg Urine Ketones Neg Urine Blood Lg Urine Nitrite Neg Urine Bilirubin Neg Urine Urobilinogen 2.0 Ur Leukocyte Esterase Sm Urine WBC (Auto) 16.0 H Urine RBC (Auto) > 182.0 U Epithel Cells (Auto) 1.0 Urine Mucus 2+ Vital Signs 06/06/20 06/06/20 06/06/20 12:25 15:59 16:09 Temperature 99.1 F 97.8 F Pulse Rate 108 H 86 Respiratory 18 18 16 Rate Blood Pressure 119/75 Blood Pressure 106/54 [Right] O2 Sat by Pulse 100 98 Oximetry 06/06/20 06/06/20 06/06/20 18:22 18:27 18:32 Temperature 98.1 F Pulse Rate 85 74 78 Respiratory 16 14 14 Rate Blood Pressure 118/64 112/65 115/73 Blood Pressure [Right] O2 Sat by Pulse 100 100 100 Oximetry 06/06/20 06/06/20 18:37 18:52 Temperature 98.6 F Pulse Rate 78 77 Respiratory 14 15 Rate Blood Pressure 122/68 128/79 Blood Pressure [Right] O2 Sat by Pulse 100 100 Oximetry - Radiology Data Radiology results: report reviewed Ordering Physician: AMINATA JERNIGAN Date of Service: 06/06/20 Procedure(s): US transvaginal Accession Number(s): [id number] cc: AMINATA JERNIGAN ULTRASOUND PELVIS COMPLETE ULTRASOUND TRANSVAGINAL INDICATION / CLINICAL INFORMATION: abd pain, bleeding, miscarriage at 16 weeks gestat. TECHNIQUE: Transabdominal and Transvaginal. Duplex Color Doppler used: Yes. COMPARISON: 05/29/2020 FINDINGS: UTERUS: Mildly enlarged. Anteverted. - Appearance (if present): No significant abnormality. - Size in cm (if present): 10.9 x 6.0 x 7.7. - Endometrial Complex (if present): The endometrial complex appears thickened and heterogeneous with increased color Doppler flow. Thickness in cm (if measured) = 3.0 - Mass lesions: No discrete mass is visualized. - Additional findings: None. RIGHT ADNEXA: No significant ovarian cyst or mass. Normal color Doppler blood flow. The right ovary measures 2.8 x 1.5 x 2.6 cm. LEFT ADNEXA: No significant ovarian cyst or mass. Normal color Doppler blood flow. The left ovary measures 2.6 x 2.2 x 1.9 cm. URINARY BLADDER: No significant abnormality. FREE FLUID: None. ADDITIONAL FINDINGS: None. IMPRESSION: The endometrium remains markedly thickened with increased vascularity on color Doppler interrogation. The overall appearance has not significantly changed since 05/29/2020 exam. Retained products of conception cannot be excluded. Uterus containing clot could also be considered. Please correlate with the patient's clinical is indication. Signer Name: Steven Wilson Jr, MD Signed: 06/06/2020 2:30 PM Workstation Name: [id number] Transcribed By: TTR Dictated By: STEVEN WILSON JR, MD Electronically Authenticated By: STEVEN WILSON JR, MD Signed Date/Time: 06/06/20 143 DD/ 1424 TD/TT: - Medical Decision Making pt is a 19 yo female who presents to the ED with c/o passing two large blood clots last night. she states she has lower abd pain and vaginal bleeding. she states she is changing her menstrual pads every 3 hours. she was diagnosed with intrauterine demise and was induced and delivered at 16 weeks gestation at this facility on 05/27/2020. she states her [employer] consultant group is [employer]. she states she was advised to follow up in 6 weeks. she states she called her OB /EMBOSSING CALENDER OPERATOR office and they advised her to be seen in the ED. she states she was advised if her "vaginal blood clot was larger than a quarter then to report to the ED." she does not have anything at home to take for pain. she denies any fever, n/v/d, dysuria, abnormal vaginal discharge. no allergies to meds. Initial vitals with elevated heart rate which improved upon repeat. On exam patient has generalized lower abdominal tenderness to palpation, no guarding, no rebound, no rigidity. Labs significant for elevated white blood cell count at 14.7. UA shows evidence of small white blood cells, there is a large amount of red blood cells, could be due to contamination. Pelvic ultrasound: The endomet rium remains markedly thickened with increased vascularity on color Doppler interrogation. The overall appearance has not significantly changed since 05/29/2020 exam. Retained products of conception cannot be excluded. Uterus containing clot could also be considered. Please correlate with the patient's clinical is indication. spoke to Dr. Chang, TECHNICAL OPERATOR regarding pt history and results, advised to give pt ampicillin and gentamicin and admit pt to mother baby. Dr. Chang, TECHNICAL OPERATOR called back and states that he is planning to take pt to OR for DNC, he will see pt in the ED and discuss with pt regarding her options, risks vs. benefits, and the treatment plan. Patient given IV antibiotics. Discussed case with Dr. Yeh, ER attending who agrees with plan. Critical care attestation.: If time is entered above; I have spent that time in minutes in the direct care of this critically ill patient, excluding procedure time. ED Disposition Clinical Impression: Retained products of conception Abdominal pain Qualifiers: Abdominal location: lower abdomen, unspecified Qualified Code(s): R10.30 - Lower abdominal pain, unspecified Leukocytosis Qualifiers: Leukocytosis type: unspecified Qualified Code(s): D72.829 - Elevated white blood cell count, unspecified UTI (urinary tract infection) Qualifiers: Urinary tract infection type: acute cystitis Hematuria presence: with hematuria Qualified Code(s): N30.01 - Acute cystitis with hematuria Disposition: OP ADMIT IP TO THIS HOSP Is pt being admited?: No Does the pt Need Aspirin: No Condition: Stable
[2020-06-06 14:31] LABS: Total Cells Counted 100
[2020-06-06 14:32] LABS: Platelet Estimate Consistent w Auto; RBC Morphology Normal
--- NOTE | 2020-06-06 14:34 | Ultrasound Report ---
ULTRASOUND PELVIS COMPLETE ULTRASOUND TRANSVAGINAL INDICATION / CLINICAL INFORMATION: abd pain, bleeding, miscarriage at 16 weeks gestat. TECHNIQUE: Transabdominal and Transvaginal. Duplex Color Doppler used: Yes. COMPARISON: 05/29/2020 FINDINGS: UTERUS: Mildly enlarged. Anteverted. - Appearance (if present): No significant abnormality. - Size in cm (if present): 10.9 x 6.0 x 7.7. - Endometrial Complex (if present): The endometrial complex appears thickened and heterogeneous with increased color Doppler flow. Thickness in cm (if measured) = 3.0 - Mass lesions: No discrete mass is visualized. - Additional findings: None. RIGHT ADNEXA: No significant ovarian cyst or mass. Normal color Doppler blood flow. The right ovary m easures 2.8 x 1.5 x 2.6 cm. LEFT ADNEXA: No significant ovarian cyst or mass. Normal color Doppler blood flow. The left ovary alan sures 2.6 x 2.2 x 1.9 cm. URINARY BLADDER: No significant abnormality. FREE FLUID: None. ADDITIONAL FINDINGS: None. IMPRESSION: The endometrium remains markedly thickened with increased vascularity on color Doppler interrogation . The overall appearance has not significantly changed since 05/29/2020 exam. Retained products of con ception cannot be excluded. Uterus containing clot could also be considered. Please correlate with leena benitez patient's clinical is indication. Signer Name: Steven Wilson Jr, MD Signed: 06/06/2020 2:30 PM Workstation Name: [id number]
[2020-06-06] MEDS ORDERED: GENTAMICIN/NS 120MG/100ML 120 MG/100 ML BAG IV ONE (16:00)
[2020-06-06] MEDS ORDERED: AMPICILLIN/NS 2 GM/100 ML 2 GM/100 ML BAG IV ONE (16:00)
[2020-06-06] MEDS ORDERED: GENTAMICIN/NS 80 MG/100 ML 100 ML IV SCH (16:00)
--- NOTE | 2020-06-06 16:44 | History and Physical Report ---
History of Present Illness Date of examination: 06/06/20 Date of admission: 06/06/20 Chief complaint: vaginal bleeding History of present illness: 19 yo PPD8 s/p for IUFD at 16w2d gestation presenting with persistent vaginal bleeding + clots and back pain. Patient also complicated by hx low platelets, varicella NI, Vit D deficiency, prior c/s x 1 for 32 week gestation for PPROM with breech presentation, and 2nd trimester SAB now x 2. Patient reports having vaginal bleeding + clots that she thought was normal after delivery, but was persistent. Past History Past Medical History: no pertinent history Past Surgical History: section (x 1) Family/Genetic History: none Social history: no significant social history - Obstetrical History : 3 Para: 1 Number of Pregnancies: 1 Spontaneous Abortions: 2 Number of Living Children: 1 Medications and Allergies Allergies Allergy/AdvReac Type Severity Reaction Status Date / Time No Known Allergies Allergy Verified 05/28/20 10:13 Home Medications Medication Instructions Recorded Confirmed Last Taken Type Benadryl 1 tab PO ONCE 05/28/20 05/28/20 1 Week Ago History ~05/21/20 One Daily Tablet 1 tab PO DAILY 05/28/20 05/28/20 05/23/20 History Vitamin D (Nf) 1 tab PO DAILY 05/28/20 05/28/20 05/23/20 History Active Meds: Active Medications Ampicillin Sodium (Ampicillin/Ns 2 Gm/100 Ml) 2 gm in 100 mls @ 100 mls/hr IV ONCE ONE; Protocol Stop: 06/06/20 16:59 Gentamicin Sulfate/Sodium Chloride (Gentamicin/Ns 80 Mg/100 Ml) 100 mls @ 200 mls/hr IV PKCONSULT ANKITA Lactated Ringer's (Lactated Ringers) 1,000 mls @ 125 mls/hr IV DIRECT ANKITA Review of Systems All systems: negative (expect HPI) - Vital Signs Vital signs: Vital Signs Temp Pulse Resp BP Pulse Ox 99.1 F 108 H 18 119/75 100 06/06/20 12:25 06/06/20 12:25 06/06/20 12:25 06/06/20 12:25 06/06/20 12:25 Temp Pulse Resp BP Pulse Ox 97.8 F 86 16 106/54 98 06/06/20 16:09 06/06/20 16:09 06/06/20 16:09 06/06/20 16:09 06/06/20 16:09 - Physical Exam Cardiovascular: Regular rate Lungs: Positive: Clear to auscultation, Normal air movement Abdomen: Positive: normal appearance, normal bowel sounds Uterus: Positive: enlarged Results Result Diagrams: 06/06/20 12:48 06/06/20 12:48 Abnormal lab results 06/06/20 06/06/20 06/06/20 Range/Units 12:48 12:48 12:48 WBC 14.7 H (4.5-11.0) K/mm3 RBC 3.61 L (3.65-5.03) M/mm3 Hgb 9.8 L (10.1-14.3) gm/dl Hct 29.7 L (30.3-42.9) % MCH 27 L (28-32) pg Seg Neuts % (Manual) 71.0 H (40.0-70.0) % Seg Neutrophils # Man 10.4 H (1.8-7.7) K/mm3 Eosinophils # (Manual) 0.6 H (0.0-0.4) K/mm3 Albumin 3.7 L (3.9-5) g/dL HCG, Quant 154.9 H (0-4) mIU/mL Urine WBC (Auto) (0.0-6.0) /HPF 06/06/20 Range/Units Unknown WBC (4.5-11.0) K/mm3 RBC (3.65-5.03) M/mm3 Hgb (10.1-14.3) gm/dl Hct (30.3-42.9) % MCH (28-32) pg Seg Neuts % (Manual) (40.0-70.0) % Seg Neutrophils # Man (1.8-7.7) K/mm3 Eosinophils # (Manual) (0.0-0.4) K/mm3 Albumin (3.9-5) g/dL HCG, Quant (0-4) mIU/mL Urine WBC (Auto) 16.0 H (0.0-6.0) /HPF All other labs normal. Ultrasound: FINDINGS: UTERUS: Mildly enlarged. Anteverted. - Appearance (if present): No significant abnormality. - Size in cm (if present): 10.9 x 6.0 x 7.7. - Endometrial Complex (if present): The endometrial complex appears thickened and heterogeneous with increased color Doppler flow. Thickness in cm (if measured) = 3.0 - Mass lesions: No discrete mass is visualized. - Additional findings: None. RIGHT ADNEXA: No significant ovarian cyst or mass. Normal color Doppler blood flow. The right ovary measures 2.8 x 1.5 x 2.6 cm. LEFT ADNEXA: No significant ovarian cyst or mass. Normal color Doppler blood flow. The left ovary measures 2.6 x 2.2 x 1.9 cm. URINARY BLADDER: No significant abnormality. FREE FLUID: None. ADDITIONAL FINDINGS: None. IMPRESSION: The endometrium remains markedly thickened with increased vascularity on color Doppler interrogation. The overall appearance has not significantly changed since 05/29/2020 exam. Retained products of conception cannot be excluded. Uterus containing clot could also be considered. Please correlate with the patient's clinical is indication. Ultrasound: report reviewed Assessment and Plan - Patient Problems (1) Retained products of conception Current Visit: Yes Status: Acute Plan to address problem: PPD8 s/p for 2nd trimester demise, now with retained POC on ultrasound imaging for ultrasound guided D&C --Start Ampicillin and Gentimicin for preoperative antibiotics, anticipate discharge with doxycycline for 14 days --Consented in the chart --Questions solicited and answered
[2020-06-06] MEDS ORDERED: LACTATED RINGERS 1,000 ML IV SCH (16:45)
[2020-06-06] MEDS ORDERED: SILVER NITRATE APPLICATOR 1 EA TP ONE ×2 (16:56→18:09)
[2020-06-06] MEDS ORDERED: METHYLERGONOVINE MALEATE 0.2 MG/ML VIAL IM ONE (16:57)
[2020-06-06] MEDS ORDERED: HYDROmorphone 1 MG/1 ML INJ ONE (16:59)
[2020-06-06] MEDS ORDERED: LIDOCAINE MPF (2%) 20 MG/1 ML VIAL 5 ML ONE (17:00)
[2020-06-06] MEDS ORDERED: propofoL 200 MG/20 ML VIAL IV ONE (17:00)
[2020-06-06] MEDS ORDERED: HYDROmorphone 1 MG/1 ML INJ IV PRN ×2 (17:03)
[2020-06-06] MEDS ORDERED: ONDANSETRON 4 MG/2 ML INJ IV PRN (17:03)
--- NOTE | 2020-06-06 17:08 | Anesthesia Day of Surgery ---
Anesthesia Day of Surgery - Day of Surgery Patient Examined: Yes Patient H&P Reviewed: Yes Patient is NPO: Yes (Water 2 hours ago and <mn for solids)
--- NOTE | 2020-06-06 17:09 | Anesthesia Consultation ---
Anesthesia Consult and Med Hx Date of service: 06/06/20 - Airway Anesthetic Teeth Evaluation: Good ROM Head & Neck: Adequate Mental/Hyoid Distance: Adequate Mallampati Class: Class II Intubation Access Assessment: Good - Pre-Operative Health Status ASA Pre-Surgery Classification: ASA2, Emergency Proposed Anesthetic Plan: General - Pulmonary Hx Smoking: No Hx Asthma: No Hx Respiratory Symptoms: No SOB: No COPD: No Hx Pneumonia: No Hx Sleep Apnea: No - Cardiovascular System Hx Hypertension: No Hx Coronary Artery Disease: No Hx Heart Attack/AMI: No Hx Angina: No Hx Percutaneous Transluminal Coronary Angioplasty (PTCA): No Hx Cardia Arrhythmia: No Hx Pacemaker: No Hx Internal Defibrillator: No Hx Valvular Heart Disease: No Hx Heart Murmur: No Hx Peripheral Vascular Disease: No - Central Nervous System Hx Neuromuscular Disorder: No Hx Seizures: No CVA: No Hx Back Pain: Yes Hx Psychiatric Problems: No - Gastrointestinal Hx Ulcer: No Hx Gastroesophageal Reflux Disease: Yes - Endocrine Hx Renal Disease: No Hx End Stage Renal Disease: No Hx Cirrhosis: No Hx Liver Disease: No Hx Insulin Dependent Diabetes: No Hx Non-Insulin Dependent Diabetes: No Hx Thyroid Disease: No Hx Hypothyroidism: No Hx Hyperthyroidism: No - Hematic Hx Anemia: Yes Hx Sickle Cell Disease: No - Other Systems Hx Alcohol Use: No Hx Substance Use: No Hx Cancer: No Hx Obesity: Yes
[2020-06-06] MEDS ORDERED: SODIUM CHLORIDE 0.9% IRR 1,500 ML BOTTLE IR ONE (17:41)
[2020-06-06] MEDS ORDERED: ONDANSETRON 4 MG/2 ML INJ ONE (17:46)
[2020-06-06] MEDS ORDERED: dexAMETHasone 20 MG/5 ML VIAL ONE (17:46)
[2020-06-06] MEDS ORDERED: KETOROLAC 30 MG/1 ML INJ ONE (18:01)
[2020-06-06] MEDS ORDERED: FERRIC SUBSULFATE TOPICAL SOLN 8 ML TP ONE ×2 (18:06→18:09)
[2020-06-06] MEDS ORDERED: OXYTOCIN 10 UNIT/1 ML INJ ONE ×2 (18:06)
[2020-06-06] MEDS ORDERED: LACTATED RINGERS 1,000 ML ONE (18:07)
[2020-06-06] MEDS ORDERED: ACETAMINOPHEN 325 MG TAB PO PRN (18:15)
[2020-06-06] MEDS ORDERED: oxyCODONE /ACETAMINOPHEN 5-325MG TAB PO PRN (18:15)
--- NOTE | 2020-06-06 18:18 | Procedure Note ---
Date of procedure: 06/06/20 Pre-op diagnosis: retained products of conception Post-op diagnosis: same Procedure: Preoperative diagnosis: 1. Retained products of conception Postoperative diagnosis: 1. Same Operation performed: 1. Examined under anesthesia 2. Ultrasound guided, Dilation & curettage Surgeon: Teresa Miranda Anesthesia: General EBL: 100cc UOP: 25cc IVF 1000cc Pathology specimens: Uterine contents Complications: none Disposition and condition: To the PACU in stable condition then discharged home Findings: 1. 10 week size mobile uterus 2. Moderate amount of products of conception Statement of medical necessity: 19 yo PPD8 s/p for IUFD at 16w2d g estation presenting with persistent vaginal bleeding + clots and back pain found to have retained POC by US. She desired surgical management. The procedure risk benefits, indications and alternatives reviewed patient. Description of operation: After informed consent, the patient was taken to the OR and placed in Saji stirrups after general anesthesia was administered. An exam under anesthesia was performed with the findings noted above. The vagina was prepped and draped in the usual sterile fashion. Straight catheterization of the bladder was performed. A duckbill speculum was placed to visualize the cervix. A single-tooth tenaculum was placed onto the anterior cervical lip. Serial dilation of the cervix with García dilators was performed. The uterus was gently sounded to 8 centimeters. Suction was calibrated to 60 mmHg, and a 12 millimeters curette was gently advanced into the uterine cavity fundus. Suction was applied, and the curette was rotated to evacuate the uterus of products of conception. A sharp curettage was performed until a gritty texture was noted. Suction curettage was repeated to clear the remaining products of conception. Minimal bleeding was noted. Ultrasound was utilized at the end of the procedure to ensure complete evacuation of the uterine cavity. The tenaculum was removed from the cervix with good hemostasis noted after silver nitrate and Monsel's paste. The speculum was removed. IM pitocin 20mg x 1 given. Patient tolerated the procedure well and was taken to recovery room in good condition. Anesthesia: MAC Surgeon: TERESA MIRANDA JR Estimated blood loss: other (100cc) IV fluids: 1,000 Urine output: 25 Pathology: list (products of conception) Specimen disposition: to lab Condition: stable Disposition: same day
--- NOTE | 2020-06-06 18:50 | Ultrasound Report ---
LIMITED INTRAOPERATIVE PELVIC ULTRASOUND INDICATION / CLINICAL INFORMATION: d c GUIDANCE. TECHNIQUE: Intraoperative spot images were obtained during the procedure. FINDINGS: Images obtained of the pelvis during the procedure. See operative/procedure note by performing physician for full details. Signer Name: Christian Garibay MD Signed: 06/06/2020 6:46 PM Workstation Name: [id number]
[2020-06-06 20:03] VITALS: BP 128/79
== END 2020-06-06 12:05 | disposition home or self-care (01) ==
LOC: ED 12:04 → EDSTATUS 19:13
PROVIDERS: ATTEND Emergency Medicine
DX: O03.4 Incomplete spontaneous abortion without complication (principal); O02.89 Other abnormal products of conception; D64.9 Anemia, unspecified; K21.9 Gastro-esophageal reflux disease without esophagitis; E66.9 Obesity, unspecified; Z98.891 History of uterine scar from previous surgery; Z3A.16 16 weeks gestation of pregnancy; Z79.899 Other long term (current) drug therapy; Z87.440 Personal history of urinary (tract) infections; Z83.3 Family history of diabetes mellitus; Z68.32 Body mass index [BMI] 32.0-32.9, adult
CPT/HCPCS: 36415; 59812; 76830; 76856; 76857; 80053; 81001; 84702; 85007; 85025; 86850; 86900; 86901; 87086; 88305; J0290; J1100; J1170; J1580; J1885; J2405; J2590; J2704; J7120; J2210; Q0162

== ENCOUNTER 2020-12-24 | Inpatient (IN) | payer OTHER ==
[2020-12-24] MEDS ORDERED: LACTATED RINGERS 500 ML IV ONE (00:11)
[2020-12-24] MEDS ORDERED: NalbUPHINE 10 MG/1 ML INJ IV PRN (01:10)
[2020-12-24] MEDS ORDERED: BUTORPHANOL 2 MG/1 ML INJ IV PRN (01:10)
[2020-12-24] MEDS ORDERED: ePHEDrine SULFATE 50 MG/1 ML INJ IV PRN (01:10)
[2020-12-24] MEDS ORDERED: OXYTOCIN 10 UNIT/1 ML INJ IM PRN (01:10)
[2020-12-24] MEDS ORDERED: METHYLERGONOVINE MALEATE 0.2 MG/ML VIAL IM PRN (01:10)
[2020-12-24] MEDS ORDERED: ACETAMINOPHEN 325 MG TAB PO PRN ×2 (01:10→10:00)
[2020-12-24] MEDS ORDERED: miSOPROStol 200 MCG TAB PR PRN (01:10)
[2020-12-24] MEDS ORDERED: CARBOPROST TROMETHAMINE 250 MCG/1 ML INJ IM PRN (01:10)
[2020-12-24] MEDS ORDERED: LOPERAMIDE 2 MG CAP PO PRN (01:10)
[2020-12-24] MEDS ORDERED: LIDOCAINE (2%) 20 MG/1 ML VIAL 20 ML MDV INFILTRATI ONE (01:10)
--- NOTE | 2020-12-24 01:10 | History and Physical Report ---
History of Present Illness Date of examination: 12/24/20 Chief complaint: vaginal bleeding History of present illness: IUFD PPROM on 12/05/20 Past History Past Surgical History: no surgical history - Obstetrical History Expected Date of Delivery: 04/16/21 Actual Gestation: 23 Week(s) 6 Day(s) : 4 Medications and Allergies Allergies Allergy/AdvReac Type Severity Reaction Status Date / Time No Known Allergies Allergy Verified 05/28/20 10:13 Home Medications Medication Instructions Recorded Confirmed Last Taken Type One Daily Tablet 1 tab PO DAILY 05/28/20 12/04/20 1 Day Ago History ~12/03/20 Vitamin D (Nf) 1 tab PO 1XW 05/28/20 12/04/20 3 Days Ago History ~12/01/20 - Vital Signs Vital signs: Vital Signs Temp Resp 98.6 F 20 12/24/20 00:14 12/24/20 00:14 Temp Pulse Resp BP Pulse Ox 98.6 F 107 H 20 116/63 100 12/24/20 00:14 12/24/20 01:07 12/24/20 00:14 12/24/20 00:23 12/24/20 01:07 - Physical Exam Breasts: Positive: deferred Cardiovascular: Regular rate Lungs: Positive: Clear to auscultation Abdomen: Positive: normal appearance, soft, normal bowel sounds Genitourinary (Female): Positive: normal external genitalia Uterus: Positive: normal contour Anus/Rectum: Positive: normal perianal skin Extremities: Positive: normal Deep Tendon Reflex Grade: Normal +2 - Obstetrical Cervical Dilatation: 2 ( parts noted in vagina) Results Result Diagrams: 12/24/20 01:30 All other labs normal. Assessment and Plan IUFD [place] Plan: admission cytotec 200mcg PV Q6 hours x 4 doses antibiotics painmeds as needed Ana Rosa Bean MD
[2020-12-24] MEDS ORDERED: LACTATED RINGERS 1,000 ML IV SCH (01:15)
--- NOTE | 2020-12-24 01:33 | Ultrasound Report ---
Limited OB ultrasound INDICATION: heart tones COMPARISON: 12/08/2019 FINDINGS: Single live intrauterine in breech position. LAZARO measures 2.7, previously 2.8 whi ch is decreased. Placenta is anterior and fundal without abruption. No heart rate is identified suggesting demise. IMPRESSION: 1. demise. No heart tones are identified. LAZARO 2.7, decreased Signer Name: Hector Perera MD Signed: 12/24/2020 1:29 AM Workstation Name: [id number]
[2020-12-24] MEDS ORDERED: miSOPROStol 200 MCG TAB VG SCH (02:00)
[2020-12-24] MEDS ORDERED: OXYTOCIN DRIP 30 UNITS/500 ML BAG IV SCH ×2 (02:00)
[2020-12-24 02:07] LABS: Hematocrit 27.8 % (30.3-42.9); Hemoglobin 9.2 gm/dl (10.1-14.3); Mean Corpuscular HGB Conc 33 % (30-34); Mean Corpuscular Volume 78 fl (79-97); Platelet Count 256 K/mm3 (140-440); Red Blood Count 3.58 M/mm3 (3.65-5.03); Red Cell Distribution Width 18.4 % (13.2-15.2)
[2020-12-24] MEDS: BUTORPHANOL 2 MG/1 ML INJ IV PRN ×2 (03:00→05:29)
[2020-12-24] MEDS ORDERED: SODIUM CHLORIDE 0.9% 500 ML 500 ML IV ONE (03:55)
[2020-12-24] MEDS ORDERED: AMPICILLIN/NS 1 GM/50 ML 1 GM/50 ML BAG IV SCH (06:00)
[2020-12-24] MEDS: fentaNYL 100 MCG/2 ML INJ IV PRN ×2 (07:32→08:56)
--- NOTE | 2020-12-24 09:28 | Procedure Note ---
OB Delivery Note - Delivery Date of Delivery: 12/24/20 Surgeon: MARC MATIAS Estimated blood loss: other (400ml) - Vaginal Delivery comments: I was called to the room for IUFD delivery. Upon entering the room, the baby had delivered and the placenta was noted to be at the cervical os. With Bimanual and Oxytocin 10mu IM the placenta delivered and was inspected and found to be complete. Firm fundus at the completion of the procedure no lacerations All sponge, needle and instrument counts correctx2 Mom to in stable condition continue abx for 24 hours after delivery. Ana Rosa Matias MD
[2020-12-24] MEDS ORDERED: ONDANSETRON 4 MG/2 ML INJ IV PRN (10:00)
[2020-12-24] MEDS ORDERED: LANOLIN/ZINC/DIMETHICONE (LANSINOH) 7 GM TP PRN (10:00)
[2020-12-24] MEDS ORDERED: KETOROLAC 30 MG/1 ML INJ IV PRN (10:00)
[2020-12-24] MEDS ORDERED: WITCH HAZEL/ GLYCERIN PAD TP PRN (10:00)
[2020-12-24] MEDS ORDERED: HYDROcodone/ACETAMINOPHEN 5-325 MG TAB PO PRN (10:00)
[2020-12-24] MEDS ORDERED: diphenhydrAMINE 25 MG CAP PO PRN (10:00)
[2020-12-24] MEDS: IBUPROFEN 600 MG TAB PO SCH ×2 (10:17→21:00)
[2020-12-24] MEDS ORDERED: PROMETHAZINE 25 MG TAB PO PRN (11:00)
[2020-12-24] MEDS ORDERED: PROMETHAZINE 25 MG RECT SUPP PR PRN (11:00)
[2020-12-24] MEDS ORDERED: oxyCODONE /ACETAMINOPHEN 5-325MG TAB PO PRN (11:00)
[2020-12-24] MEDS ORDERED: MAGNESIUM HYDROXIDE (MOM) ORAL LIQD UDC PO PRN (22:00)
[2020-12-25 00:56] LABS: Hematocrit 28.6 % (30.3-42.9); Hemoglobin 9.1 gm/dl (10.1-14.3)
[2020-12-25] MEDS: IBUPROFEN 600 MG TAB PO SCH (05:41)
[2020-12-25] MEDS ORDERED: medroxyPROGESTERone ACETATE 150 MG/ML SYRINGE IM SCH (10:00)
--- NOTE | 2020-12-25 10:21 | Progress Note ---
Assessment and Plan A: PP Day #1 s/p IUFD delivery Asymptomatic Anemia P: Follow Routine Orders D/C Home today per patient request RTO in 6 Weeks Subjective - Subjective Date of service: 12/25/20 Patient reports: appetite normal, voiding normally, pain well controlled, flatus, ambulating normally : Objective - Vital Signs Latest vital signs: Vital Signs Temp Pulse Resp BP BP Pulse Ox Pulse Ox 12/25/20 08:30 98 12/25/20 07:48 97.6 F 64 16 105/64 97 12/25/20 04:30 98 F 75 18 119/73 12/25/20 00:00 98.7 F 74 18 102/78 12/24/20 21:00 99 12/24/20 20:17 97.6 F 70 18 109/69 99 12/24/20 19:30 99 12/24/20 15:16 97.7 F 78 20 102/59 99 12/24/20 13:25 97 12/24/20 12:54 88 98 12/24/20 12:49 59 L 98 12/24/20 12:44 66 98 12/24/20 12:39 65 98 12/24/20 12:34 67 98 12/24/20 12:29 67 98 12/24/20 12:24 65 98 12/24/20 12:19 69 98 12/24/20 12:14 70 98 12/24/20 12:09 72 98 12/24/20 12:04 70 97 12/24/20 11:59 72 98 12/24/20 11:54 74 98 12/24/20 11:49 72 98 12/24/20 11:44 76 98 12/24/20 11:41 98.1 F 76 18 109/55 98 12/24/20 11:39 81 97 12/24/20 11:34 83 98 12/24/20 11:29 76 98 12/24/20 11:24 82 98 12/24/20 11:19 87 98 12/24/20 11:18 91 H 130/60 12/24/20 11:14 78 97 12/24/20 11:09 79 97 12/24/20 11:04 78 96 12/24/20 11:02 78 114/62 12/24/20 10:59 78 95 12/24/20 10:54 84 96 12/24/20 10:49 82 96 12/24/20 10:47 83 121/62 12/24/20 10:44 86 97 12/24/20 10:39 92 H 98 12/24/20 10:34 91 H 99 12/24/20 10:32 86 123/66 12/24/20 10:29 90 98 12/24/20 10:24 92 H 99 Intake and Output 12/24/20 12/25/20 12/25/20 22:59 06:59 14:59 Intake Total 300 Output Total 600 Balance -300 Intake: Intake, Free Water 300 Output: Urine 600 Void 600 Other: Total, Output Amount 600 # Voids Void 1 - Exam Breasts: Present: normal Cardiovascular: Present: Regular rate Lungs: Present: Clear to auscultation, Normal air movement Abdomen: Present: normal appearance, soft, normal bowel sounds Uterus: Present: normal, firm, fundal height below umbilicus Extremities: Present: normal - Labs Labs: Abnormal lab results 12/25/20 Range/Units 00:08 Hgb 9.1 L (10.1-14.3) gm/dl Hct 28.6 L (30.3-42.9) %
--- NOTE | 2020-12-25 10:24 | Discharge Summary ---
Providers - Providers Date of Admission: 12/24/20 01:10 Date of discharge: 12/25/20 Attending physician: MARC MATIAS MD Primary care physician: MARC MATIAS MD Hospitalization Reason for admission: induction of labor Delivery: Episiotomy: none Laceration: none Other procedures: none complications: none Discharge diagnosis: intrapartum demise Condition at discharge: Good Disposition: 01 HOME / SELF CARE / HOMELESS Plan - Discharge Medications Prescriptions: Ibuprofen [Motrin 600 MG tab] 600 mg PO Q6H 30 Days #30 tablet - Provider Discharge Summary Activity: routine, no sex for 6 weeks, no heavy lifting 4 weeks, no strenuous exercise Diet: routine Instructions: routine Additional instructions: [] Smoking cessation referral if applicable(refer to patient education folder for contact #) [] Refer to [facility] Booklet Call your doctor immediately for: * Fever > 100.5 * Heavy vaginal bleeding ( >1 pad per hour) * Severe persistent headache * Shortness of breath * Reddened, hot, painful area to leg or breast * Drainage or odor from incision. * Keep incision clean and dry at all times and follow doctor's instructions regarding bathing/showering - Follow up plan Follow up: MARC MATIAS MD [Primary Care Provider] - 6 Weeks
[2020-12-25 12:02] VITALS: BP 96/53
== END 2020-12-25 12:05 | disposition home or self-care (01) | DRG 775 ==
LOC: TRG → APU 00:11 → LD 01:10 → TRG 01:10 → LD 02:10 → OB 14:46
PROVIDERS: ADMIT Obstetrics & Gynecology; ATTEND Obstetrics & Gynecology
PROC: 10E0XZZ Delivery of Products of Conception, External Approach (ICD-10-PCS; principal; 2020-12-24)
DX: O36.4XX0 Maternal care for intrauterine death, not applicable or unspecified (principal); Z37.1 Single stillbirth; Z3A.22 22 weeks gestation of pregnancy; Z20.822 Contact with and (suspected) exposure to COVID-19
CPT/HCPCS: 36415; 59025; 76815; 85014; 85018; 85027; 86850; 86900; 86901; 86920; 88305; 96372; G0378; J0290; J0595; J1050; J2590; J3010; J7120; U0003